=== PATIENT | female | born 1995 ===

== ENCOUNTER 2017-05-21 16:38 | Emergency (ER) | payer OTHER ==
[2017-05-21] MEDS ORDERED: Sodium Chloride 0.9% 1,000 ML IV ONE (17:09)
--- NOTE | 2017-05-21 17:13 | C.PDOC ---
History Of Present Illness 21 y/o female, with no significant past medical history, presents to the emergency department for evaluation of lower abdominal pain associated with mild dysuria for the last 3 days. Notes she has irregular menstrual periods, and is unsure of when her last period was. Otherwise, denies any n/v/d, back pain, hematuria, fever, chills, or any other complaints at this time. Time Seen by Provider: 05/21/17 17:01 Chief Complaint (Nursing): Abdominal Pain History Per: Patient History/Exam Limitations: no limitations Onset/Duration Of Symptoms: Days (3) Current Symptoms Are (Timing): Still Present Radiation Of Pain To:: None Quality Of Discomfort: "Pain" Associated Symptoms: Urinary Symptoms. denies: Fever, Chills, Nausea, Vomiting , Diarrhea, Loss Of Appetite, Back Pain, Chest Pain, Constipation Exacerbating Factors: None Alleviating Factors: None Recent travel outside of the [place]: No Additional History Per: Patient Abnormal Vaginal Bleeding: No Last Menstral Period: pt does not know Past Medical History Reviewed: Historical Data, Nursing Documentation, Vital Signs Vital Signs: Last Vital Signs Temp 98.2 F 05/21/17 20:13 Pulse 74 05/21/17 20:13 Resp 20 05/21/17 20:13 BP 96/60 L 05/21/17 20:13 Pulse Ox 98 05/21/17 20:31 Family History: States: Unknown Family Hx - Social History Hx Alcohol Use: No Hx Substance Use: No - Immunization History Hx Tetanus Toxoid Vaccination: No Hx Influenza Vaccination: No Hx Pneumococcal Vaccination: No Review Of Systems Except As Marked, All Systems Reviewed And Found Negative. Constitutional: Negative for: Fever, Chills Cardiovascular: Negative for: Chest Pain, Palpitations Respiratory: Negative for: Cough, Shortness of Breath Gastrointestinal: Positive for: Abdominal Pain. Negative for: Nausea, Vomiting , Diarrhea, Constipation Genitourinary: Positive for: Dysuria. Negative for: Frequency, Incontinence, Hematuria, Vaginal Discharge Musculoskeletal: Negative for: Back Pain Skin: Negative for: Rash, Bruising Neurological: Negative for: Headache, Dizziness Physical Exam - Physical Exam Appears: Non-toxic, No Acute Distress Skin: Normal Color, Warm, Dry Head: Atraumatic, Normacephalic Eye(s): bilateral: Normal Inspection Neck: Normal ROM, Supple Chest: Symmetrical Cardiovascular: Rhythm Regular, No Murmur Respiratory: Normal Breath Sounds, No Rales, No Rhonchi, No Wheezing Gastrointestinal/Abdominal: Soft, Tenderness (mild suprapubic), No Guarding, No Rebound Extremity: Normal ROM Neurological/Psych: Oriented x3, Normal Speech, Normal Cognition ED Course And Treatment - Laboratory Results Result Diagrams: 05/21/17 17:32 05/21/17 17:32 O2 Sat by Pulse Oximetry: 98 Pulse Ox Interpretation: Normal - CT Scan/US Transabd US Other Rad Studies (CT/US): Read By Radiologist, Radiology Report Reviewed CT/US Interpretation: EXAM: US Pelvis Complete, Transabdominal. US Pelvis, Transvaginal. CLINICAL HISTORY: 21 years old, female; Pain; Pelvic pain. TECHNIQUE: Real-time transabdominal and transvaginal pelvic ultrasound ( complete) with image documentation. Transvaginal imaging was used for better evaluation of the endometrium and adnexa. COMPARISON: No relevant prior studies available. FINDINGS: Uterus/cervix: The uterus measures 6.6 x 2.8 x 4.1 cm. There is suboptimal visualization of the. endometrial stripe. Ovaries : The ovaries are not seen as separate structures. Free fluid: No free fluid. Bladder: The bladder is not well distended. IMPRESSION: Poor visualization of the endometrial stripe and the adnexa. The bladder is not well-distended. Transvaginal US Other Rad Studies (CT/US): Read By Radiologist, Radiology Report Reviewed CT/US Interpretation: EXAM: US Pelvis, Transvaginal. CLINICAL HISTORY: 21 years old, female; Pain; Pelvic pain. TECHNIQUE: Real-time transvaginal pelvic ultrasound (complete) with image documentation. Transvaginal. imaging was used for better evaluation of the endometrium and adnexa. EXAM DATE/TIME: Exam ordered 05/21/2017 6:20 PM. COMPARISON: No relevant prior studies available. FINDINGS: Endovaginal ultrasound was performed for better delineation of the adnexa and endometrial stripe. Uterus/cervix: The uterus measures at least 7.7 x 2.8 x 4.5 cm.. The endometrial stripe measures 6. mm. Right ovary: The right ovary measures 3.6 x 2 x 3.3 cm and contains a complex cyst measuring 2. cm in greatest diameter. The cyst appears collapsed. Subcentimeter peripheral follicles are present. within the right ovary. Blood flow is demonstrated in the right ovary color Doppler and pulsed Doppler. examination. Left ovary: The left ovary measures 3.5 x 2.1 x 2.8 cm and contains a complex cyst measuring 2.5. cm in greatest diameter. A small cyst is contained within the complex cyst. Blood flow is. demonstrated within the ovary on color Doppler examination. Free fluid: No free fluid. Bladder: Empty bladder which cannot be evaluated with this probe. IMPRESSION: 1. Complex cyst within the left ovary. Followup in 6 weeks might be considered to document. resolution. Progress Note: Blood work, urinalysis ordered and reviewed. Patient was given IV fluids, and Tylenol. Medical Decision Making Medical Decision Making: suspect ovarian cyst vs uti. labs imaging pending 740: US shows ovarian cyst. abd soft no ttp pain resolved. no rlq ttp, h/h stable. no leukocytosis. stable for outpt f/u pt notfiied for outpt f/u and advised will need repeat eval for complex cyst. verbalizes understanding. Disposition - Disposition Referrals: Cristopher Horowitz [Staff Provider] - [facility] [Outside] [facility] [Outside] [facility] [Outside] Disposition: HOME/ ROUTINE Disposition Time: 08:00 Condition: GOOD Additional Instructions: please follow upw ith your doctor. return to er with worsening symptoms or concerns. Instructions: Ovarian Cyst (ED), Acute Abdominal Pain (ED) Print Language: KAZAKH - Clinical Impression Clinical Impression: Abdominal pain, Ovarian cyst - Scribe Statement The provider has reviewed the documentation as recorded by the Yusufibmaxim Brown All medical record entries made by the Yusufibmaxim were at my direction and personally dictated by me. I have reviewed the chart and agree that the record accurately reflects my personal performance of the history, physical exam, medical decision making, and the department course for this patient. I have also personally directed, reviewed, and agree with the discharge instructions and disposition.
[2017-05-21 17:37] LABS: BASO % 0.6 % (0.0-2.0); EOS # 0.3 K/uL (0.0-0.7); EOS % 4.2 % (0.0-4.0); HEMOGLOBIN 12.9 g/dL (11.0-16.0); LYMPH # 3.2 K/uL (1.0-4.3); LYMPH % 39.4 % (20.0-40.0); MEAN CELL VOLUME 84.3 fL (81.0-99.0); MEAN CORPUSCULAR HEMOGLOBIN 27.3 pg (27.0-31.0); MEAN CORPUSCULAR HGB CONC 32.3 g/dL (33.0-37.0); MEAN PLATELET VOLUME 8.3 fL (7.2-11.7); MONO # 0.6 K/uL (0.0-0.8); MONO % 7.8 % (0.0-10.0); NEUT # 3.9 K/uL (1.8-7.0); NRBC % 0.2 % (0.0-2.0); RBC 4.74 Mil/uL (3.80-5.20); RED CELL DISTRIBUTION WIDTH 14.5 % (11.5-14.5); WHITE BLOOD COUNT 8.1 K/uL (4.8-10.8)
[2017-05-21 17:40] LABS: HCG,QUALITATIVE URINE NEGATIVE (NEGATIVE)
[2017-05-21 17:44] LABS: ALBUMIN 4.2 g/dL (3.5-5.0)
[2017-05-21 17:45] LABS: PROTHROMBIN TIME 11.8 SECONDS (9.7-12.2)
[2017-05-21 17:47] LABS: ALB/GLOB RATIO 1.1 (1.0-2.1); AST/SGOT 22 U/L (14-36); GFR AFRICAN-AMERICAN > 60; GFR NON-AFRICAN AMERICAN > 60; SQUAMOUS EPITHIAL 9 /hpf (0-5); URINE BACTERIA RARE (<OCC); URINE BILIRUBIN NEGATIVE (NEGATIVE); URINE BLOOD 1+ (NEGATIVE); URINE CLARITY Hazy (Clear); URINE COLOR Yellow (YELLOW); URINE GLUCOSE (UA) NORMAL (Normal); URINE LEUKOCYTE ESTERASE 1+ Leu/uL (Negative); URINE NITRATE NEGATIVE (NEGATIVE); URINE PROTEIN NEGATIVE (NEGATIVE); URINE UROBILINOGEN NORMAL mg/dL (0.2-1.0)
[2017-05-21 17:48] LABS: ALT/SGPT 29 U/L (9-52); BLOOD UREA NITROGEN 11 mg/dL (7-17); CALCIUM 9.2 mg/dl (8.6-10.4); LIPASE 110 U/L (23-300)
[2017-05-21] MEDS ORDERED: Sodium Chloride 0.9% 1,000 ML ONE (17:51)
--- NOTE | 2017-05-21 19:42 | US ---
EXAM: US Pelvis Complete, Transabdominal US Pelvis, Transvaginal CLINICAL HISTORY: 21 years old, female; Pain; Pelvic pain TECHNIQUE: Real-time transabdominal and transvaginal pelvic ultrasound (complete) with image documentation. Transvaginal imaging was used for better evaluation of the endometrium and adnexa. COMPARISON: No relevant prior studies available. FINDINGS: Uterus/cervix: The uterus measures 6.6 x 2.8 x 4.1 cm. There is suboptimal visualization of the endometrial stripe. Ovaries: The ovaries are not seen as separate structures. Free fluid: No free fluid. Bladder: The bladder is not well distended. IMPRESSION: Poor visualization of the endometrial stripe and the adnexa. The bladder is not well-distended. EXAM: US Pelvis, Transvaginal CLINICAL HISTORY: 21 years old, female; Pain; Pelvic pain TECHNIQUE: Real-time transvaginal pelvic ultrasound (complete) with image documentation. Transvaginal imaging was used for better evaluation of the endometrium and adnexa. EXAM DATE/TIME: Exam ordered 05/21/2017 6:20 PM COMPARISON: No relevant prior studies available. FINDINGS: Endovaginal ultrasound was performed for better delineation of the adnexa and endometrial stripe. Uterus/cervix: The uterus measures at least 7.7 x 2.8 x 4.5 cm.. The endometrial stripe measures 6 mm. Right ovary: The right ovary measures 3.6 x 2 x 3.3 cm and contains a complex cyst measuring 2 cm in greatest diameter. The cyst appears collapsed. Subcentimeter peripheral follicles are present within the right ovary. Blood flow is demonstrated in the right ovary color Doppler and pulsed Doppler examination. Left ovary: The left ovary measures 3.5 x 2.1 x 2.8 cm and contains a complex cyst measuring 2.5 cm in greatest diameter. A small cyst is contained within the complex cyst. Blood flow is demonstrated within the ovary on color Doppler examination. Free fluid: No free fluid. Bladder: Empty bladder which cannot be evaluated with this probe. IMPRESSION: 1. Complex cyst within the left ovary. Followup in 6 weeks might be considered to document resolution.
[2017-05-21 20:19] VITALS: BP 96/60; PULSE 74; RESP 20; TEMP 98.2
[2017-05-21 20:31] VITALS: O2SAT 98
== END 2017-05-21 20:13 | disposition home or self-care (01) ==
LOC: C.ER 16:38
DX: N83.202 Unspecified ovarian cyst, left side (principal)
CPT/HCPCS: 76830; 76856; 80053; 81001; 83690; 84702; 84703; 85025; 85610; 85730; 96360; 99284; J7040